=== PATIENT | female | born 1950 | race Caucasian/White ===

== ENCOUNTER 2017-05-07 11:45 | Emergency (ER) | payer OTHER ==
[~2017-05-07] VITALS: Ht 152.4 cm; Wt 122.9 kg
[~2017-05-07 11:45] MED LIST: ABAT250V; ALBU90OI61 INH; ALBUIS INH; AMLO5; AMLO5 PO; ASCO500 PO; ASPI325 PO; ASPI325EC; ASPI81EC PO; Aldactone25 MG PO; Amox Tr-K Clv1 EAC2 PO; Antivert25 MG PO; B Complex1 EAC2 PO; BELPTAB PO; CALCAVITD PO; CALCAVITDA PO; CALCIUM; CALMAGZIN; CALMAGZIN PO; CALPHO600 PO; CARV6.25 PO; CEPH500 PO; CETI10 PO; CHOL10002 PO; CIPR500 PO; CIPRO500 MG PO; CITA20 PO; CLEM1.34; CLOP75 PO; CRANBERRY250 MG PO; DIAZ2 PO; DICL25ER PO; DICL75ER PO; DILT120 PO; DIPH50 PO; DOCU100 PO; DOXY100T53 PO; DULO60 PO; ERGO400 PO; FERR325 PO; FIBER; FISH1000 PO; FLUSAL5005 INH; FLUT110OIA INH; FOLI1 PO; FURO20 PO; FURO40 PO; Flagyl500 MG PO; GABA100 PO; GLIP10 PO; GLIP5 PO; HYDACE10B PO; HYDACE5 PO; HYDCHL25 PO; HYDCOR2.5A PR; IBUP800 PO; IRON PO; IRON150C; IRON150C PO; ISOMON20 PO; ISOMON30 PO; LAVAP17G PO; LEVFLO500 PO; LISHYD2012 PO; LISHYD2025; LISHYD2025 PO; LISI20 PO; LISI5 PO; LORA10 PO; Lasix40 MG PO; MAGGLU250 PO; MAGNESIUM OTC; MAGNESIUM PO; MAGOXI400 PO; MECL25 PO; METF500 PO; METF500C PO; METO100 PO; METO100ER PO; METO50ER; METR500 PO; MOTION RELIEF25 MG PO; MOTION SICKNESS; MULVITA PO; MULVITB PO; MULVITMIND PO; MULVITMINF PO; NAPR500 PO; NEBI10 PO; NEBI5 PO; NITR.4SL SL; NITR.6SL SL; NITR100CA PO; NITROMIST4.1 GM TL; Norco 5-325 Ta1 EACH PO; OMEP40CA12 PO; ONDA8ODT MM; OXYACE5T PO; OXYC5 PO; PANT40 PO; POLY500 PO; POTA10T PO; POTA8 PO; POTASSIUM; POTCHL10ER PO; POTCHL20ER PO; PROM25 PO; PYRI100 PO; Percocet 5-3251 EACH PO; Prednisone20 MG PO; Prednisone50 MG PO; RANO500T PO; ROSU10TA PO; SIMV40 PO; STOMUL PO; SULTRIDS PO; TOCO400 PO; TRAZ100 PO; VITB100; VITNEPH PO; Ventolin Soln3 ML INH; WARF2.5 PO; WARF5 PO; ZINC; ZINC15 PO; ZOLP10 PO; ZOLP5 PO; Zofran Odt4 MG SL; Zofran4 MG PO
[2017-05-07] MEDS ORDERED: Golytely Solu4000 ML PO (14:30)
[2017-05-07] MEDS ORDERED: Kristalose20 GM PO (14:30)
[2017-05-07] MEDS ORDERED: BUME2 PO (14:51)
[2017-05-07] MEDS ORDERED: LOSA25 PO (14:52)
== END 2017-05-07 14:45 | disposition home or self-care (01) ==
LOC: ER 11:45
DX: K59.00 Constipation, unspecified (principal); I13.0 Hypertensive heart and chronic kidney disease with heart failure and stage 1 through stage 4 chronic kidney disease, or unspecified chronic kidney disease; I50.9 Heart failure, unspecified; N18.2 Chronic kidney disease, stage 2 (mild); E78.5 Hyperlipidemia, unspecified; D64.9 Anemia, unspecified; F32.9 Major depressive disorder, single episode, unspecified; Z87.891 Personal history of nicotine dependence
CPT/HCPCS: 74018; 99283

== ENCOUNTER 2017-07-11 10:07 | Emergency (ER) | payer OTHER ==
[~2017-07-11] VITALS: Ht 170.2 cm; Wt 122.5 kg
[~2017-07-11 10:07] MED LIST changes: +BUME2 PO; +Golytely Solu4000 ML PO; +Kristalose20 GM PO; +LOSA25 PO
[2017-07-11 10:52] LABS: BASOPHILS ABSOLUTE AUTO 0.02 K/mm3 (0.00-0.23); BASOPHILS PERCENT AUTO 0 % (0-2); EOSINOPHILS ABSOLUTE AUTO 0.05 K/mm3 (0.00-0.68); EOSINOPHILS PERCENT AUTO 1 % (0-6); Hematocrit 35.3 % (33.0-51.0); Hemoglobin 11.7 g/dL (11.5-16.0); IMMATURE GRAN ABSOLUTE AUTO 0.03 K/mm3 (0.00-0.10); IMMATURE GRAN PERCENT AUTO 1 % (0-1); LYMPHOCYTES ABSOLUTE AUTO 0.96 K/mm3 (0.84-5.20); LYMPHOCYTES PERCENT AUTO 16 % (21-46); MONOCYTES ABSOLUTE AUTO 0.49 K/mm3 (0.16-1.47); MONOCYTES PERCENT AUTO 8 % (4-13); Mean Corpuscular HGB 32.9 pg (26.0-34.0); Mean Corpuscular HGB Conc 33.1 g/dL (31.5-36.5); Mean Corpuscular Volume 99 fL (80-100); Mean Platelet Volume 10.4 fL (9.1-12.4); NEUTROPHILS PERCENT AUTO 74 % (41-73); Platelet Count 145 K/mm3 (150-400); RDW Coefficient Variation 14.5 % (11.7-14.2); RDW Standard Deviation 52.8 fL (35.1-46.3); Red Blood Cell Count 3.56 M/mm3 (3.80-5.20); White Blood Cell Count 6.05 K/mm3 (4.00-11.30)
[2017-07-11 11:16] LABS: Alanine Aminotransfer (ALT/SGP 26 U/L (12-78); Albumin, Blood 2.9 g/dL (3.4-5.0); Albumin/Globulin Ratio 0.7 (0.8-1.8); Alk Phos 60 U/L (50-136); Anion Gap 6 mmol/L (6-16); Aspartate Aminotrans (AST/SGOT 16 U/L (12-37); Bilirubin, Total 0.7 mg/dL (0.1-1.0); Blood Urea Nitrogen 21 mg/dL (8-24); Bun/Creatinine Ratio 19.1 (12.0-20.0); CO2, Blood 26 mmol/L (21-32); Calcium, Blood 8.8 mg/dL (8.5-10.1); Chloride, Blood 107 mmol/L (98-108); Glomerular Filtration Rate 52 (60-); Glucose, Blood 124 mg/dL (70-99); Potassium, Blood 4.2 mmol/L (3.5-5.5); Sodium, Blood 139 mmol/L (136-145); Total Protein, Blood 6.9 g/dL (6.4-8.2); Troponin I <0.015 ng/mL (0.000-0.040)
[2017-07-11] MEDS ORDERED: SPIR25 PO (12:02)
[2017-07-11] MEDS ORDERED: LOSA25 PO (12:02)
== END 2017-07-11 14:43 | disposition home or self-care (01) ==
LOC: ER 10:07
PROVIDERS: Emergency Medicine
DX: R07.9 Chest pain, unspecified (principal); Z87.891 Personal history of nicotine dependence; Z79.899 Other long term (current) drug therapy
CPT/HCPCS: 36415; 71046; 80053; 84484; 85025; 93005; 93010; 96374; 99284; J2405

== ENCOUNTER 2017-10-24 08:20 | Day surgery (SDC) | payer OTHER ==
[~2017-10-24] VITALS: Ht 152.4 cm; Wt 120.7 kg
[~2017-10-24 08:20] MED LIST changes: +SPIR25 PO
== END 2017-10-24 22:45 | disposition home or self-care (01) ==
LOC: ORSCMMR 08:20 → ORD 10:00 → ORSCMMR 10:00 → ORD 10:15 → ORSCMMR 22:45
PROVIDERS: Internal Medicine Gastroenterology
PROC: 0D758ZZ Dilation of Esophagus, Via Natural or Artificial Opening Endoscopic (ICD-10-PCS; principal; 2017-10-24 10:00)
DX: R13.10 Dysphagia, unspecified (principal); K20.9 Esophagitis, unspecified; I10 Essential (primary) hypertension; I25.2 Old myocardial infarction; J44.9 Chronic obstructive pulmonary disease, unspecified; K27.9 Peptic ulcer, site unspecified, unspecified as acute or chronic, without hemorrhage or perforation; N18.9 Chronic kidney disease, unspecified; E66.01 Morbid (severe) obesity due to excess calories; Z68.43 Body mass index [BMI] 50.0-59.9, adult
CPT/HCPCS: 82947; J2250; J7030; J7120

== ENCOUNTER 2018-08-19 11:27 | Day surgery (SDC) | payer OTHER ==
[~2018-08-19 11:27] MED LIST changes: +ALBU2.5V5 NEB; +BREO ELLIPTA 11 EACH INH; +CARV25 PO; +CRANBERRY450 M1; +LO-DOSE ASPIRIN81 MG PO; +Loratadine10 MG PO; +Nyamyc15 GM EXT; +OMEPRAZOLE20 MG PO; +Oyster Shell C500 MG PO; +Pravachol40 MG PO; +TRAZ50 PO; +VITAMIN D31000 UNIT PO
--- NOTE | 2018-08-19 12:00 | NUR ---
History, Chart, Medications and Allergies reviewed before start of procedure.Patient states colon prep results clear. Patient States Post-Procedure ride home has been arranged.
--- NOTE | 2018-08-19 14:53 | NUR ---
08/19/18 1920 Ray Hart 3-LEAD EKG REVIEWED WITH PHYSICIAN PRIOR TO START OF PROCEDURE.Patient to ENDO 1History, Chart, Medications and Allergies reviewed before start of procedure.MONITOR INTACT WITH CONTINUOUS PULSE OXIMETRY AND INTERMITTENT BP.O2 VIA N/C INTACT THROUGHOUT SEDATION/PROCEDURE. See Anesthesia record
[2018-08-19] MEDS ORDERED: RANO500T PO (15:11)
--- NOTE | 2018-08-19 15:22 | NUR ---
Patient up to Ambulate independently. Gait steady. Discharge instructions reviewed with patient. Patient verbalizes understanding. Copy given to patient to take home. Discharged via wheelchair to private car for ride home.
== END 2018-08-19 15:22 | disposition home or self-care (01) ==
LOC: ORSCMMR 11:27 → ORD 12:45 → ORSCMMR 15:22
PROVIDERS: Internal Medicine Gastroenterology
PROC: 0DBL8ZX Excision of Transverse Colon, Via Natural or Artificial Opening Endoscopic, Diagnostic (ICD-10-PCS; principal; 2018-08-19 12:45)
PROC: 0DBK8ZX Excision of Ascending Colon, Via Natural or Artificial Opening Endoscopic, Diagnostic (ICD-10-PCS; principal; 2018-08-19 12:45)
PROC: 0DBN8ZX Excision of Sigmoid Colon, Via Natural or Artificial Opening Endoscopic, Diagnostic (ICD-10-PCS; principal; 2018-08-19 12:45)
DX: Z12.11 Encounter for screening for malignant neoplasm of colon (principal); Z86.010 Personal history of colon polyps; D12.2 Benign neoplasm of ascending colon; D12.3 Benign neoplasm of transverse colon; D12.5 Benign neoplasm of sigmoid colon; K57.30 Diverticulosis of large intestine without perforation or abscess without bleeding; K64.8 Other hemorrhoids; K64.4 Residual hemorrhoidal skin tags; I10 Essential (primary) hypertension; I25.10 Atherosclerotic heart disease of native coronary artery without angina pectoris; J44.9 Chronic obstructive pulmonary disease, unspecified; E78.5 Hyperlipidemia, unspecified; J45.909 Unspecified asthma, uncomplicated; I25.2 Old myocardial infarction; G47.33 Obstructive sleep apnea (adult) (pediatric); Z79.899 Other long term (current) drug therapy; Z87.891 Personal history of nicotine dependence; E66.01 Morbid (severe) obesity due to excess calories; Z68.43 Body mass index [BMI] 50.0-59.9, adult
CPT/HCPCS: 88305; J2704; J7120

== ENCOUNTER → 2018-09-21 | Outpatient (CLI) | payer OTHER ==
[2018-09-21 16:26] LABS: BASOPHILS ABSOLUTE AUTO 0.02 K/mm3 (0.00-0.23); BASOPHILS PERCENT AUTO 0 % (0-2); EOSINOPHILS ABSOLUTE AUTO 0.07 K/mm3 (0.00-0.68); EOSINOPHILS PERCENT AUTO 1 % (0-6); Hematocrit 37.5 % (33.0-51.0); Hemoglobin 12.7 g/dL (11.5-16.0); IMMATURE GRAN ABSOLUTE AUTO 0.06 K/mm3 (0.00-0.10); IMMATURE GRAN PERCENT AUTO 1 % (0-1); LYMPHOCYTES ABSOLUTE AUTO 1.06 K/mm3 (0.84-5.20); LYMPHOCYTES PERCENT AUTO 14 % (21-46); MONOCYTES ABSOLUTE AUTO 0.49 K/mm3 (0.16-1.47); MONOCYTES PERCENT AUTO 6 % (4-13); Mean Corpuscular HGB 33.2 pg (26.0-34.0); Mean Corpuscular HGB Conc 33.9 g/dL (31.5-36.5); Mean Corpuscular Volume 98 fL (80-100); Mean Platelet Volume 10.3 fL (9.1-12.4); NEUTROPHILS ABSOLUTE AUTO 6.15 K/mm3 (1.96-9.15); NEUTROPHILS PERCENT AUTO 78 % (41-73); Platelet Count 162 K/mm3 (150-400); RDW Coefficient Variation 14.7 % (11.7-14.2); RDW Standard Deviation 52.9 fL (35.1-46.3); Red Blood Cell Count 3.82 M/mm3 (3.80-5.20); White Blood Cell Count 7.85 K/mm3 (4.00-11.30)
[2018-09-21 16:34] LABS: Bun/Creatinine Ratio 14.1 (12.0-20.0); Calcium, Blood 8.7 mg/dL (8.5-10.1); Creatinine, Blood 1.35 mg/dL (0.40-1.00); Potassium, Blood 3.6 mmol/L (3.5-5.5)
== END | disposition home or self-care (01) ==
LOC: LAB SHORT 16:20 → LAB EV 16:20
PROVIDERS: Family Medicine
DX: R53.81 Other malaise (principal); R53.83 Other fatigue
CPT/HCPCS: 80048; 85025

== ENCOUNTER 2018-10-26 14:41 | Emergency (ER) | payer OTHER ==
[~2018-10-26] VITALS: Ht 152.4 cm; Wt 120.7 kg
[2018-10-26 15:44] LABS: BASOPHILS ABSOLUTE AUTO 0.02 K/mm3 (0.00-0.23); BASOPHILS PERCENT AUTO 0 % (0-2); EOSINOPHILS ABSOLUTE AUTO 0.07 K/mm3 (0.00-0.68); EOSINOPHILS PERCENT AUTO 1 % (0-6); Hemoglobin 12.8 g/dL (11.5-16.0); IMMATURE GRAN ABSOLUTE AUTO 0.04 K/mm3 (0.00-0.10); IMMATURE GRAN PERCENT AUTO 1 % (0-1); LYMPHOCYTES ABSOLUTE AUTO 1.25 K/mm3 (0.84-5.20); LYMPHOCYTES PERCENT AUTO 19 % (21-46); MONOCYTES PERCENT AUTO 8 % (4-13); Mean Corpuscular HGB 34.2 pg (26.0-34.0); Mean Corpuscular HGB Conc 33.7 g/dL (31.5-36.5); Mean Corpuscular Volume 102 fL (80-100); Mean Platelet Volume 10.2 fL (9.1-12.4); NEUTROPHILS ABSOLUTE AUTO 4.55 K/mm3 (1.96-9.15); NEUTROPHILS PERCENT AUTO 71 % (41-73); Platelet Count 155 K/mm3 (150-400); RDW Coefficient Variation 14.5 % (11.7-14.2); Red Blood Cell Count 3.74 M/mm3 (3.80-5.20); White Blood Cell Count 6.43 K/mm3 (4.00-11.30)
[2018-10-26 16:04] LABS: Alanine Aminotransfer (ALT/SGP 19 U/L (12-78); Albumin/Globulin Ratio 0.7 (0.8-1.8); Alk Phos 82 U/L (50-136); Anion Gap 7 mmol/L (6-16); Aspartate Aminotrans (AST/SGOT 15 U/L (12-37); Bilirubin, Total 0.9 mg/dL (0.1-1.0); Blood Urea Nitrogen 9 mg/dL (8-24); Bun/Creatinine Ratio 9.7 (12.0-20.0); CO2, Blood 31 mmol/L (21-32); Chloride, Blood 105 mmol/L (98-108); Creatinine, Blood 0.93 mg/dL (0.40-1.00); Globulin, Blood 4.3 g/dL (2.2-4.0); Glomerular Filtration Rate >60 (60-); Glucose, Blood 105 mg/dL (70-99); Magnesium, Blood 1.5 mg/dL (1.6-2.4); Potassium, Blood 3.3 mmol/L (3.5-5.5); Sodium, Blood 143 mmol/L (136-145); Total Protein, Blood 7.3 g/dL (6.4-8.2)
== END 2018-10-26 17:00 | disposition home or self-care (01) ==
LOC: ER 14:41
PROVIDERS: Physician Assistant
DX: K52.9 Noninfective gastroenteritis and colitis, unspecified (principal); I10 Essential (primary) hypertension; Z86.718 Personal history of other venous thrombosis and embolism; Z87.891 Personal history of nicotine dependence; Z79.899 Other long term (current) drug therapy; Z79.891 Long term (current) use of opiate analgesic; Z79.82 Long term (current) use of aspirin
CPT/HCPCS: 36415; 80053; 83690; 83735; 85025; 93005; 93010; 99284-25

== ENCOUNTER → 2019-05-31 | Outpatient (CLI) | payer OTHER ==
[2019-05-31 12:55] LABS: Protein, Urine Random 9.5 mg/dL (0.0-11.9)
[2019-05-31 13:10] LABS: Creatinine, Urine Random 91.6 mg/dL (27.00-270.00)
== END | disposition home or self-care (01) ==
LOC: LAB SHORT 12:05 → OLS 12:05 → LAB FUT 02-26 15:50
PROVIDERS: Internal Medicine
DX: N18.3 Chronic kidney disease, stage 3 (moderate) (principal)
CPT/HCPCS: 82570; 84156

== ENCOUNTER 2021-09-11 10:03 | Emergency (ER) | payer OTHER ==
[~2021-09-11] VITALS: Ht 152.4 cm; Wt 118.8 kg
[~2021-09-11 10:03] MED LIST changes: +CALCIUM 600 MG1 EA19 PO; +Isosorbide Mono60 MG PO; -Oyster Shell C500 MG PO
[2021-09-11 10:50] LABS: BASOPHILS ABSOLUTE AUTO 0.05 K/mm3 (0.00-0.23); BASOPHILS PERCENT AUTO 1 % (0-2); EOSINOPHILS ABSOLUTE AUTO 0.21 K/mm3 (0.00-0.68); EOSINOPHILS PERCENT AUTO 3 % (0-6); Hematocrit 35.5 % (33.0-51.0); IMMATURE GRAN ABSOLUTE AUTO 0.03 K/mm3 (0.00-0.10); IMMATURE GRAN PERCENT AUTO 0 % (0-1); LYMPHOCYTES ABSOLUTE AUTO 1.86 K/mm3 (0.84-5.20); LYMPHOCYTES PERCENT AUTO 23 % (21-46); MONOCYTES ABSOLUTE AUTO 0.54 K/mm3 (0.16-1.47); MONOCYTES PERCENT AUTO 7 % (4-13); Mean Corpuscular HGB Conc 33.8 g/dL (31.5-36.5); Mean Corpuscular Volume 95 fL (80-100); NEUTROPHILS ABSOLUTE AUTO 5.34 K/mm3 (1.96-9.15); NEUTROPHILS PERCENT AUTO 67 % (41-73); Platelet Count 162 K/mm3 (150-400); RDW Coefficient Variation 14.8 % (11.7-14.2); RDW Standard Deviation 51.6 fL (35.1-46.3); Red Blood Cell Count 3.75 M/mm3 (3.80-5.20); White Blood Cell Count 8.03 K/mm3 (4.00-11.30)
[2021-09-11 11:14] LABS: Albumin, Blood 2.9 g/dL (3.4-5.0); Albumin/Globulin Ratio 0.7 (0.8-1.8); Bilirubin, Total 1.2 mg/dL (0.1-1.0); Bun/Creatinine Ratio 10.9 (12.0-20.0); Creatinine, Blood 1.01 mg/dL (0.40-1.00); Globulin, Blood 4.3 g/dL (2.2-4.0); Potassium, Blood 3.7 mmol/L (3.5-5.5); Total Protein, Blood 7.2 g/dL (6.4-8.2)
[2021-09-11 12:43] LABS: Source, Urine Clean Catch
[2021-09-11 12:56] LABS: Bilirubin, Urine Neg (Neg); Blood, Urine Neg (Neg); Color, Urine Yellow (P-Yellow); Glucose Qualitative, Urine Neg (Neg); Ketones, Urine Neg (Neg); Leukocyte Esterase, Urine Neg (Neg); Nitrite, Urine Pos (Neg); Protein, Urine Neg (Neg); Specific Gravity, Urine 1.015 (1.003-1.022); Urobilinogen, Urine NORM (Normal)
[2021-09-11 14:12] LABS: Appearance, Urine Hazy (Clear); Red Blood Cells, Urine 0-2 /hpf (0-2); White Blood Cells, Urine 0-2 /hpf (0-5)
[2021-09-11 14:13] LABS: Bacteria Many /hpf; Hyaline Casts 0-2 /lpf (0-2); Mucus Light (0-Heavy); Squamous Epithelial Cells Mod /hpf (Few)
[2021-09-11] MEDS ORDERED: CEPH500 PO (15:00)
[2021-10-03] MEDS ORDERED: HYDR1TAB94 PO (16:11)
[2021-10-03] MEDS ORDERED: Colace100 MG PO (16:11)
== END 2021-09-11 15:11 | disposition home or self-care (01) ==
LOC: ER 10:03
PROVIDERS: Physician Assistant
DX: M54.9 Dorsalgia, unspecified (principal); R19.7 Diarrhea, unspecified; I50.9 Heart failure, unspecified; N39.0 Urinary tract infection, site not specified; I11.0 Hypertensive heart disease with heart failure; Z87.891 Personal history of nicotine dependence; Z79.899 Other long term (current) drug therapy; Z79.82 Long term (current) use of aspirin; Z95.5 Presence of coronary angioplasty implant and graft
CPT/HCPCS: 36415; 71045; 80053; 81001; 84484; 85025; 87077; 87086; 87186; 93005; 93010; 99284-25; A9270

== ENCOUNTER 2021-10-21 07:58 | Inpatient (IN) | payer OTHER ==
[~2021-10-21] VITALS: Ht 152.4 cm; Wt 120.4 kg
[~2021-10-21 07:58] MED LIST changes: +Colace100 MG PO; +HYDR1TAB94 PO
[2021-10-21] MEDS ORDERED: MELO7.5 PO (08:23)
[2021-10-21] MEDS ORDERED: FAMO20 PO (08:23)
[2021-10-21] MEDS ORDERED: LOSA50 PO (08:24)
[2021-10-21] MEDS ORDERED: FURO20 PO (08:25)
[2021-10-21] MEDS ORDERED: BREO ELLIPTA 21 EAC1 INH (08:26)
[2021-10-21] MEDS ORDERED: Acerola C500 MG PO (08:26)
[2021-10-21 08:45] LABS: BASOPHILS ABSOLUTE AUTO 0.03 K/mm3 (0.00-0.23); BASOPHILS PERCENT AUTO 1 % (0-2); EOSINOPHILS ABSOLUTE AUTO 0.26 K/mm3 (0.00-0.68); EOSINOPHILS PERCENT AUTO 4 % (0-6); Hematocrit 33.9 % (33.0-51.0); IMMATURE GRAN ABSOLUTE AUTO 0.02 K/mm3 (0.00-0.10); IMMATURE GRAN PERCENT AUTO 0 % (0-1); LYMPHOCYTES ABSOLUTE AUTO 0.89 K/mm3 (0.84-5.20); LYMPHOCYTES PERCENT AUTO 14 % (21-46); MONOCYTES ABSOLUTE AUTO 0.52 K/mm3 (0.16-1.47); MONOCYTES PERCENT AUTO 8 % (4-13); Mean Corpuscular HGB 32.2 pg (26.0-34.0); Mean Corpuscular HGB Conc 32.4 g/dL (31.5-36.5); Mean Corpuscular Volume 99 fL (80-100); Mean Platelet Volume 10.6 fL (9.1-12.4); NEUTROPHILS ABSOLUTE AUTO 4.87 K/mm3 (1.96-9.15); NEUTROPHILS PERCENT AUTO 74 % (41-73); Platelet Count 165 K/mm3 (150-400); RDW Coefficient Variation 15.6 % (11.7-14.2); RDW Standard Deviation 56.5 fL (35.1-46.3); Red Blood Cell Count 3.42 M/mm3 (3.80-5.20); White Blood Cell Count 6.59 K/mm3 (4.00-11.30)
[2021-10-21 09:17] LABS: Albumin/Globulin Ratio 0.6 (0.8-1.8); Bilirubin, Total 1.3 mg/dL (0.1-1.0); Bun/Creatinine Ratio 21.1 (12.0-20.0); Calcium, Blood 9.1 mg/dL (8.5-10.1); Creatinine, Blood 0.9 mg/dL (0.40-1.00); Globulin, Blood 4.9 g/dL (2.2-4.0); Potassium, Blood 4.2 mmol/L (3.5-5.5); Total Protein, Blood 7.9 g/dL (6.4-8.2)
[2021-10-21] MEDS ORDERED: PRAV20 PO (15:08)
[2021-10-21] MEDS ORDERED: DOCU100 PO (15:09)
[2021-10-21] MEDS ORDERED: CRANBERRY500 M1 PO (15:10)
--- NOTE | 2021-10-21 15:12 | NUR ---
PT ADMITTED TO ROOM 313 AT 1430. PT A/O X 4, ONE ASSIST ON ADMIT. PT GAVE MEDICATION LIST AND MEDS RECONCILED TO LIST. PT REPORTS SHE USES OXYGEN NEEDED AT HOME AND DENIES SOB AT THIS TIME. PT HAS REDNESS AND PITTING EDEMA TO BLE. PHOTOS TAKEN OF BLE AND REDNESS OUTLINED WITH SKIN PEN. PT REPORTS LOWER BACK PAIN WITH TX TO BED, TOLERABLE AT THIS TIME. PT IS INCONTINENT OF URINE AT THIS TIME AND UNABLE TO TX QUICK ENOUGH TO BSC. ATTENDS WERE SATURATED WITH PALE YELLOW URINE, NO FOUL ODOR. PT REQUESTED PURWICK TO BE PLACED. PT DID COME UP FROM ER WITH PURWICK IN PLACE. SUCTION SET UP AND NEW PURWICK PLACED.PT PLEASANT AND COOPERATIVE WITH CARE AT THIS TIME.
[2021-10-21 17:46] LABS: International Normalized Ratio 1.02; Prothrombin Time Results 10.7 Sec (9.7-11.5)
--- NOTE | 2021-10-21 20:30 | NUR ---
PT IN BED. PUREWICK IN PLACE PATENT AND DRAINING. ASSISTED PT WITH THE USE OF THE OVERHEAD MONITOR SO SHE COULD WATCH TV. A/O. ON RA AT THIS TIME. BLE ELEVATED ON PILLOW. BOTH LEGS RED, WARM, REDNESS OUTLINED WITH MARKER. PT STATES SWELLING IN LEGS HAS REALLY GONE DOWN, MY FEET LOOK SO MUCH BETTER. NO COMPLAINTS OF CP. ON HEP GTT. WILL CONTINUE TO PROVIDE CARE T/O SHIFT. CALL LT IN REACH.
--- NOTE | 2021-10-21 22:08 | NUR ---
DR AWARE OF CRITICAL TROPONIN 694. DR CALLED LAB FOR THE CRITICAL LEVEL. NO NEW ORDERS PLACED.
--- NOTE | 2021-10-21 22:36 | NUR ---
PT PLACED IN CPAP WITH 2L BLEED IN ON CONT BIOX AT 95%. CALL LT IN REACH.
--- NOTE | 2021-10-22 00:10 | NUR ---
PT RESTING QUIETLY. CALL LT IN REACH.
[2021-10-22 00:17] LABS: BASOPHILS ABSOLUTE AUTO 0.04 K/mm3 (0.00-0.23); BASOPHILS PERCENT AUTO 1 % (0-2); EOSINOPHILS ABSOLUTE AUTO 0.25 K/mm3 (0.00-0.68); EOSINOPHILS PERCENT AUTO 4 % (0-6); Hematocrit 31.2 % (33.0-51.0); Hemoglobin 10.4 g/dL (11.5-16.0); IMMATURE GRAN ABSOLUTE AUTO 0.01 K/mm3 (0.00-0.10); IMMATURE GRAN PERCENT AUTO 0 % (0-1); LYMPHOCYTES ABSOLUTE AUTO 1.12 K/mm3 (0.84-5.20); LYMPHOCYTES PERCENT AUTO 16 % (21-46); MONOCYTES ABSOLUTE AUTO 0.53 K/mm3 (0.16-1.47); MONOCYTES PERCENT AUTO 7 % (4-13); Mean Corpuscular HGB 32.3 pg (26.0-34.0); Mean Corpuscular HGB Conc 33.3 g/dL (31.5-36.5); Mean Corpuscular Volume 97 fL (80-100); Mean Platelet Volume 10.6 fL (9.1-12.4); NEUTROPHILS ABSOLUTE AUTO 5.22 K/mm3 (1.96-9.15); NEUTROPHILS PERCENT AUTO 73 % (41-73); Platelet Count 172 K/mm3 (150-400); RDW Coefficient Variation 15.4 % (11.7-14.2); RDW Standard Deviation 55.1 fL (35.1-46.3); Red Blood Cell Count 3.22 M/mm3 (3.80-5.20); White Blood Cell Count 7.17 K/mm3 (4.00-11.30)
[2021-10-22 00:35] LABS: Albumin, Blood 2.8 g/dL (3.4-5.0); Albumin/Globulin Ratio 0.6 (0.8-1.8); Bilirubin, Total 1.3 mg/dL (0.1-1.0); Bun/Creatinine Ratio 18.3 (12.0-20.0); Calcium, Blood 8.9 mg/dL (8.5-10.1); Creatinine, Blood 1.15 mg/dL (0.40-1.00); Globulin, Blood 4.6 g/dL (2.2-4.0); Total Protein, Blood 7.4 g/dL (6.4-8.2)
--- NOTE | 2021-10-22 01:25 | NUR ---
PT RESTING WELL. PUREWICK IN PLACE. CONT BIOX 91%. CPAP IN PLACE. HEP GTT INFUSING. WILL CONTINUE TO PROVIDE CARE.
--- NOTE | 2021-10-22 02:57 | NUR ---
RATE CHANGE IN HEPARIN IVPB DOSING COMPLETED WITH SECOND RN. PT SWITCHED OUT TO NC 2L. WAS TIRED OF WEARING CPAP. NO OTHER NEEDS. CALL LT IN REACH.
--- NOTE | 2021-10-22 04:34 | NUR ---
SHIFT SUMMARY: A/O. PLEASANT AND COOPERATIVE WITH CARE. ON 2L VIA NC NEEDED. SINUS AT 62 ON TELE WITH PVC'S. HEP GTT INFUSING. RATE CHANGE DURING SHIFT. TROP IS STARTING TO TREND DOWN, LAST TROP 694. NO COMPLAINTS OF CHEST PAIN, SOB, OR NAUSEA. PT WORE CPAP MOST OF THE SHIFT. CURRENTLY ON 2L VIA NC WITH SATS OF 94%. BLE SWELLING IMPROVING PER PT. STATES THE SWELLING HAS GONE DOWN QUITE A BIT. WILL CONTINUE TO PROVIDE CARE UNTIL SHIFT REPORT.
--- NOTE | 2021-10-22 18:39 | NUR ---
SHIFT SUMMARY: PT ALERT AND OREIENTATED. PT SBA TO THE BEDSIDE CAMMODE. PT VITALS STABLE, PT REQUESTED FOR PAIN MEDICATION FOR NECK PAIN. ON REASSESSMENT PT STATED NO PAIN. PT STATED CONSTIPATION, DR. GORDON ORDER DOCUSATE 100MG BID. PT RESTING IN BED WITH CALL LIGHT WITHIN REACH.
[2021-10-23 02:17] LABS: BASOPHILS ABSOLUTE AUTO 0.04 K/mm3 (0.00-0.23); BASOPHILS PERCENT AUTO 1 % (0-2); EOSINOPHILS ABSOLUTE AUTO 0.29 K/mm3 (0.00-0.68); EOSINOPHILS PERCENT AUTO 4 % (0-6); Hematocrit 30.5 % (33.0-51.0); Hemoglobin 10.1 g/dL (11.5-16.0); IMMATURE GRAN ABSOLUTE AUTO 0.02 K/mm3 (0.00-0.10); IMMATURE GRAN PERCENT AUTO 0 % (0-1); LYMPHOCYTES ABSOLUTE AUTO 1.07 K/mm3 (0.84-5.20); LYMPHOCYTES PERCENT AUTO 15 % (21-46); MONOCYTES ABSOLUTE AUTO 0.55 K/mm3 (0.16-1.47); MONOCYTES PERCENT AUTO 8 % (4-13); Mean Corpuscular HGB 32.2 pg (26.0-34.0); Mean Corpuscular HGB Conc 33.1 g/dL (31.5-36.5); Mean Corpuscular Volume 97 fL (80-100); Mean Platelet Volume 10.5 fL (9.1-12.4); NEUTROPHILS PERCENT AUTO 72 % (41-73); Platelet Count 157 K/mm3 (150-400); RDW Coefficient Variation 15.6 % (11.7-14.2); RDW Standard Deviation 54.7 fL (35.1-46.3); Red Blood Cell Count 3.14 M/mm3 (3.80-5.20); White Blood Cell Count 7.07 K/mm3 (4.00-11.30)
[2021-10-23 02:35] LABS: Albumin, Blood 2.7 g/dL (3.4-5.0); Anion Gap 5 mmol/L (6-16); Blood Urea Nitrogen 28 mg/dL (8-24); Bun/Creatinine Ratio 23.5 (12.0-20.0); CO2, Blood 34 mmol/L (21-32); Calcium, Blood 8.7 mg/dL (8.5-10.1); Chloride, Blood 99 mmol/L (98-108); Creatinine, Blood 1.19 mg/dL (0.40-1.00); Glomerular Filtration Rate 49 (60-); Glucose, Blood 116 mg/dL (70-99); Phosphorus, Blood 4.6 mg/dL (2.5-4.9); Potassium, Blood 3.8 mmol/L (3.5-5.5); Sodium, Blood 138 mmol/L (136-145)
--- NOTE | 2021-10-23 06:09 | NUR ---
SHIFT SUMMARY: PT IS ALERT AND ORIENTED. PT IS CALM AND COOPERATIVE WITH CARE. PT CALLS APPROPRIATELY. PT IS A STANDBY ASSIST TO THE BSC. PT DENIES PAIN, NAUSEA, VOMITING, AND SOB. PT SLEPT MUCH OF THE NIGHT WHEN NOT DISTURBED. NO ACUTE CHANGES OR COMPLICATIONS THIS SHIFT. WILL CONTINUE TO MONITOR AND REPORT TO DAY NURSE.
--- NOTE | 2021-10-23 07:34 | NUR ---
ASSUMED CARE: PT RESTING IN BED AT THIS TIME, CPAP IN PLACE. SINUS CHANG ON TELE AT 58. NO ACUTE NEEDS OR CONCERNS AT THIS TIME.
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
--- NOTE | 2021-10-23 15:36 | NUR ---
discharge: pt escorted out via wheel chair by hospital staff. legs wrapped with vaseline guaze and kerlix. iv's dc'd wnl. no acute needs or concern.
== END 2021-10-23 15:30 | disposition home or self-care (01) | DRG 280 ==
LOC: ER 07:58 → MEDS 07:59
PROVIDERS: Emergency Medicine; Family Medicine; ADMIT Hospitalist
DX: I11.0 Hypertensive heart disease with heart failure (principal); I50.33 Acute on chronic diastolic (congestive) heart failure; I21.A1 Myocardial infarction type 2; Z66 Do not resuscitate; G47.33 Obstructive sleep apnea (adult) (pediatric); M19.90 Unspecified osteoarthritis, unspecified site; J44.9 Chronic obstructive pulmonary disease, unspecified; K21.9 Gastro-esophageal reflux disease without esophagitis; Z91.14 Patient's other noncompliance with medication regimen; I25.2 Old myocardial infarction; Z86.718 Personal history of other venous thrombosis and embolism; Z90.49 Acquired absence of other specified parts of digestive tract; Z87.19 Personal history of other diseases of the digestive system; Z95.5 Presence of coronary angioplasty implant and graft; Z98.49 Cataract extraction status, unspecified eye; Z87.891 Personal history of nicotine dependence; Z79.82 Long term (current) use of aspirin; Z79.899 Other long term (current) drug therapy
CPT/HCPCS: 36415; 71046; 80053; 80069; 83880; 84484; 85025; 85610; 85730; 93005; 93010; 94640; 94660; 94664; 94762; 96372; 96372-59; 96374; 96375; 96376; 99285-25; A9270; C8929; G0378; J1644; J1650; J1940; J2405; J3010; Q9957

== ENCOUNTER 2021-11-19 01:05 | Day surgery (SDC) | payer OTHER ==
[~2021-11-19 01:05] MED LIST changes: +Acerola C500 MG PO; +BREO ELLIPTA 21 EAC1 INH; +CRANBERRY500 M1 PO; +FAMO20 PO; +LOSA50 PO; +MELO7.5 PO; +PRAV20 PO
== END 2021-11-19 22:53 | disposition home or self-care (01) ==
LOC: WOUND 01:05
DX: L97.812 Non-pressure chronic ulcer of other part of right lower leg with fat layer exposed (principal); L03.115 Cellulitis of right lower limb; L97.822 Non-pressure chronic ulcer of other part of left lower leg with fat layer exposed; L03.116 Cellulitis of left lower limb; I87.313 Chronic venous hypertension (idiopathic) with ulcer of bilateral lower extremity; I87.2 Venous insufficiency (chronic) (peripheral)
CPT/HCPCS: G0463

== ENCOUNTER 2021-12-03 01:43 | Day surgery (SDC) | payer OTHER | END 2021-12-03 22:53 | disposition home or self-care (01) | LOC: WOUND 01:43 | DX: I87.313 Chronic venous hypertension (idiopathic) with ulcer of bilateral lower extremity (principal); L97.822 Non-pressure chronic ulcer of other part of left lower leg with fat layer exposed; L97.812 Non-pressure chronic ulcer of other part of right lower leg with fat layer exposed; L03.116 Cellulitis of left lower limb; L03.115 Cellulitis of right lower limb; R60.0 Localized edema; I87.2 Venous insufficiency (chronic) (peripheral); I25.2 Old myocardial infarction; I50.9 Heart failure, unspecified | CPT/HCPCS: A9270; G0463 ==

== ENCOUNTER 2021-12-10 01:56 | Day surgery (SDC) | payer OTHER | END 2021-12-10 23:22 | disposition home or self-care (01) | LOC: WOUND 01:56 | DX: I87.303 Chronic venous hypertension (idiopathic) without complications of bilateral lower extremity (principal); R60.0 Localized edema; I87.2 Venous insufficiency (chronic) (peripheral); I25.2 Old myocardial infarction; I50.9 Heart failure, unspecified; Z87.2 Personal history of diseases of the skin and subcutaneous tissue | CPT/HCPCS: G0463 ==

== ENCOUNTER 2022-01-11 08:55 | Inpatient (IN) | payer OTHER ==
[~2022-01-11] VITALS: Ht 152.4 cm; Wt 117.5 kg
[~2022-01-11 08:55] MED LIST changes: +ALBU2.5V5 INH; +ALBU90OI INH; +Vitamin D1000 UNI1 PO
[2022-01-11 09:48] LABS: Hematocrit 34.5 % (33.0-51.0); Hemoglobin 11.9 g/dL (11.5-16.0); Mean Corpuscular HGB Conc 34.5 g/dL (31.5-36.5); Mean Corpuscular Volume 96 fL (80-100); Mean Platelet Volume 10.8 fL (9.1-12.4); Platelet Count 152 K/mm3 (150-400); RDW Coefficient Variation 14.4 % (11.7-14.2); RDW Standard Deviation 50.4 fL (35.1-46.3); Red Blood Cell Count 3.61 M/mm3 (3.80-5.20); White Blood Cell Count 6.24 K/mm3 (4.00-11.30)
[2022-01-11 10:00] LABS: International Normalized Ratio 1.04; Prothrombin Time Results 10.9 Sec (9.7-11.5)
[2022-01-11 10:01] LABS: Bun/Creatinine Ratio 20.2 (12.0-20.0); Calcium, Blood 9.3 mg/dL (8.5-10.1); Creatinine, Blood 1.19 mg/dL (0.40-1.00); Potassium, Blood 3.5 mmol/L (3.5-5.5)
--- NOTE | 2022-01-11 11:40 | NUR ---
pt report from jossie wells. pt a&ox4. pt sitting up in bed. tr band in place with 12cc of air in band. sister at bedside.
--- NOTE | 2022-01-11 13:25 | NUR ---
PT ATE LUNCH AND GIVEN ICE WATER. PT ATTENDS CHANGED. PT TO BE TAKEN TO PCU
--- NOTE | 2022-01-11 13:45 | NUR ---
2 CC REMOVED FROM TR BAND. NO BLEEDING NOTED. SITE SOFT AND NON-TENDER. PT TRANSPORTED TO PCU. REPORT GIVEN TO RICKY OLIVAS.
[2022-01-11] MEDS ORDERED: NYSTATIN15 GM TOP (15:32)
--- NOTE | 2022-01-11 18:44 | NUR ---
PT ARRIVED FROM [facility] THIS AFTER NOON POST ANGIO, NO INTERVENTIONS WERE PERFORMED, PT WILL BE TRANSFERED FOR CABG. RT RADIAL SITE IS FULLY RECOVERED, NO HEMATOMA, NO ACTIVE BLEEDING NOTED. VSS. DENIES CP OR SOB. 1 PERSON STAND BY TO BATHROOM. A/O X4. NEW ORDERS FOR HEPARIN PLACED
--- NOTE | 2022-01-12 05:29 | NUR ---
SHIFT SUMMARY PT ALERT AND ORIENTED X4. AFEBRILE. HR SB/SR 50-60'S. BP STABLE. ON RA SATS OVER 95%. ON CPAP AT NIGHT W/ 2-3L BLEED IN. R RADIAL SITE C/D/I. PT REPORTS NO CP. HEP GTT INFUSING IN R A/C. ASLEEP MOST OF NIGHT. IN BED WITH CALL ALARM AT SIDE, WILL CONTINUE TO MONITOR UNTIL REPORT GIVEN TO ONCOMING RN
--- NOTE | 2022-01-12 18:30 | NUR ---
PT A/O X4, VSS. DENIES CP OR SOB T/O THE DAY. VSS. PT SBA TO BATHROOM. AWAITING COBRA TRANSFER TO [facility] FOR CABG. HEPARIN CONTINUES TO INFUSE AT 13/HR. NADN. USES CALL LIGHT APPROPRIATELY. REMAINS ON RA T/O THE DAY. ANTI-FUNGAL APPLIED TO ABD SKIN FOLDS THAT ARE REDDENED.
--- NOTE | 2022-01-13 05:43 | NUR ---
SHIFT SUMMARY ASSUMED CARE OF PT AT 1900. P[T IS A/OX4. HEART SOUNDS CHANG. LUNG SOUNDS DIMINISHED AT BASES. PT WORE CPAP T/O THE NIGHT. PT IS A 1P ASSIT TO BATHROOM. PT HAD NO NEW COMPLAINTS TODAY. HEPRIN GTT INFUSING ALL NIGHT.
--- NOTE | 2022-01-13 17:33 | NUR ---
SHIFT SUMMARY; ASSUMED CARE AT 0700. A/A/OX4, SBA IN ROOM. MOVES SELF ON GURNEY NEEDED. RIGHT RADIAL SITE WITH TEGADERM INTACT, DRY, NO SWELLING OR BRUISING. DENIES CP OR SOB DURING SHIFT, VSS, 2L 02 VIA SD PRN, STATES THIS IS BASELINE FOR HER. NO ACUTE MEDICAL CHANGES DURING SHIFT. PENDING POSSIBLE COBRA TRANSFER, WILL CONTINUE TO LOOK FOR BEDS. WILL CONTINUE TO MONITOR AND TREAT UNTIL CHANGE OF SHIFT.
--- NOTE | 2022-01-13 17:35 | NUR ---
SHIFT SUMMARY; ASSUMED CARE AT 0700. A/A/OX2-3. INTERMITANTLY CONFUSED AT TIMES. BEDBOUND AT BASELINE, LEGS CONTRACTED. Q2 TURNS DURING SHIFT WITH ATTENDS CHANGES. MEPILEX TO LEFT HIP AREA. LARGE RAW SORE NOTED. MOANS IN PAIN WHEN REPOSITIONED, STATES HURTS ALL OVER. FENTANYL PATCH CHANGED TODAY PER EMAR, IV FENTANYL PRN FOR BREAKTHROUGH PAIN. SPOUSE AT BEDSIDE IN AM. VSS, 8L 02 VIA OXYMIZER. WILL CONTINUE TO MONITOR AND TREAT UNTIL CHANGE OF SHIFT.
--- NOTE | 2022-01-14 06:17 | NUR ---
Patient A/Ox4, cooperative with care. Anxious to get her procedure done. SR-SB on tele with BBB and PAC's. Maintains over 95% on 3L NC or CPAP with 3L bleed in. Heparin gtt still going per emar. No acute events. Will report to dayshift RICKY.
[2022-01-14 16:54] LABS: SARS-Cov-2 (COVID-19) PCR, MMC NEGATIVE (NEGATIVE)
--- NOTE | 2022-01-14 17:43 | NUR ---
END OF SHIFT: NEURO: COMLETELY ALERT AND ORIENTED, PLEASANT COOPERATIVE WITH CARE, ABLE TO MAKE NEEDS KNOWN. CARDIAC: SB TO SR, 0 CP, PRESSURE OR SOB. NORMOTENSIVE, SOME MINOR EXERTION DYSPNEA. RESOLVES WITH REST, VERY MINOR. STILL INFUSING HEPARIN AT 13 THERAPUETIC ANTI X DAILY. GENERALIZED EDEMA WITH 2+ NONPITTING EDEMA ON BLE. PULM: SPO2>96% ON RA, 1-3L VIA NC WITH EXERTION, NO COUGH OR ADVENTAGIOUS LUNG SOUNDS. GI/: BM TODAY, CONTINENT OF BOWEL, VERY RARE INCONTINENCE OF URINE, DIURETICS IN PLACE, SKIN: BLE VASCULAR SOCKING NOTING, PLAN: SENDING TO [id number]. REPORT GIVEN AMBULANCE EN ROUTE. NO CONCERNS FROM PATIENT OR THIS RN AT THIS TIME.
== END 2022-01-14 18:23 | disposition short-term general hospital (02) | DRG 287 ==
LOC: PCU 08:55 → MHTC 08:55 → PCU 14:37 → MHTC 01-12 14:05 → PCU 01-12 14:06
PROVIDERS: ADMIT Internal Medicine Cardiovascular Disease
PROC: 4A023N7 Measurement of Cardiac Sampling and Pressure, Left Heart, Percutaneous Approach (ICD-10-PCS; principal; 2022-01-11)
PROC: B2111ZZ Fluoroscopy of Multiple Coronary Arteries using Low Osmolar Contrast (ICD-10-PCS; 2022-01-11)
DX: I25.118 Atherosclerotic heart disease of native coronary artery with other forms of angina pectoris (principal); I13.0 Hypertensive heart and chronic kidney disease with heart failure and stage 1 through stage 4 chronic kidney disease, or unspecified chronic kidney disease; I50.32 Chronic diastolic (congestive) heart failure; Z68.43 Body mass index [BMI] 50.0-59.9, adult; T82.855A Stenosis of coronary artery stent, initial encounter; I25.82 Chronic total occlusion of coronary artery; Z20.822 Contact with and (suspected) exposure to COVID-19; E66.9 Obesity, unspecified; N18.30 Chronic kidney disease, stage 3 unspecified; E11.22 Type 2 diabetes mellitus with diabetic chronic kidney disease; E78.00 Pure hypercholesterolemia, unspecified; J44.9 Chronic obstructive pulmonary disease, unspecified; K21.9 Gastro-esophageal reflux disease without esophagitis; G47.33 Obstructive sleep apnea (adult) (pediatric); Z95.5 Presence of coronary angioplasty implant and graft; Z79.82 Long term (current) use of aspirin; Z87.891 Personal history of nicotine dependence; Z66 Do not resuscitate
CPT/HCPCS: 36415; 76937; 80048; 85027; 85520; 85610; 93454; 94640; 94660; 94664; 94762; 99152; 99153; A9270; C1769; C1887; C1894; J1644; J2250; J3010; J7030; J7040; Q9967; U0004

== ENCOUNTER 2022-03-13 04:07 | Day surgery (SDC) | payer OTHER ==
[~2022-03-13 04:07] MED LIST changes: +NYSTATIN15 GM TOP
== END 2022-03-13 23:02 | disposition home or self-care (01) ==
LOC: WOUND 04:07
DX: T81.31XA Disruption of external operation (surgical) wound, not elsewhere classified, initial encounter (principal); S31.102A Unspecified open wound of abdominal wall, epigastric region without penetration into peritoneal cavity, initial encounter; S21.109A Unspecified open wound of unspecified front wall of thorax without penetration into thoracic cavity, initial encounter; L97.122 Non-pressure chronic ulcer of left thigh with fat layer exposed; I50.9 Heart failure, unspecified; I25.2 Old myocardial infarction; Z95.1 Presence of aortocoronary bypass graft; Z87.891 Personal history of nicotine dependence
CPT/HCPCS: A9270; G0463

== ENCOUNTER 2022-03-20 05:32 | Day surgery (SDC) | payer OTHER | END 2022-03-20 23:01 | disposition home or self-care (01) | LOC: WOUND 05:32 | DX: T81.31XA Disruption of external operation (surgical) wound, not elsewhere classified, initial encounter (principal); L97.122 Non-pressure chronic ulcer of left thigh with fat layer exposed; S21.109A Unspecified open wound of unspecified front wall of thorax without penetration into thoracic cavity, initial encounter; S31.102A Unspecified open wound of abdominal wall, epigastric region without penetration into peritoneal cavity, initial encounter | CPT/HCPCS: A9270 ==

== ENCOUNTER 2022-03-27 01:41 | Day surgery (SDC) | payer OTHER | END 2022-03-27 22:52 | disposition home or self-care (01) | LOC: WOUND 01:41 | DX: T81.32XA Disruption of internal operation (surgical) wound, not elsewhere classified, initial encounter (principal); L97.122 Non-pressure chronic ulcer of left thigh with fat layer exposed; Y83.8 Other surgical procedures as the cause of abnormal reaction of the patient, or of later complication, without mention of misadventure at the time of the procedure | CPT/HCPCS: A9270; G0463 ==

== ENCOUNTER → 2022-04-02 | Outpatient (CLI) | payer OTHER ==
[2022-04-02 11:38] LABS: Bun/Creatinine Ratio 16.7 (12.0-20.0); Creatinine, Blood 1.26 mg/dL (0.40-1.00); Potassium, Blood 3.4 mmol/L (3.5-5.5)
== END ==
LOC: EDSTATUS 10:06 → LAB UVN 10:36
PROVIDERS: Internal Medicine
DX: I10 Essential (primary) hypertension (principal); N17.9 Acute kidney failure, unspecified
CPT/HCPCS: 80048

== ENCOUNTER 2022-04-12 01:23 | Day surgery (SDC) | payer OTHER | END 2022-04-13 22:40 | disposition home or self-care (01) | LOC: WOUND 01:23 | DX: T81.31XA Disruption of external operation (surgical) wound, not elsewhere classified, initial encounter (principal); L97.122 Non-pressure chronic ulcer of left thigh with fat layer exposed; S21.109A Unspecified open wound of unspecified front wall of thorax without penetration into thoracic cavity, initial encounter; S31.102A Unspecified open wound of abdominal wall, epigastric region without penetration into peritoneal cavity, initial encounter | CPT/HCPCS: A9270; G0463 ==

== ENCOUNTER 2022-04-19 00:13 | Day surgery (SDC) | payer OTHER | END 2022-04-19 23:05 | disposition home or self-care (01) | LOC: WOUND 00:13 | DX: T81.31XA Disruption of external operation (surgical) wound, not elsewhere classified, initial encounter (principal); S21.109A Unspecified open wound of unspecified front wall of thorax without penetration into thoracic cavity, initial encounter; S31.102A Unspecified open wound of abdominal wall, epigastric region without penetration into peritoneal cavity, initial encounter; I50.9 Heart failure, unspecified; I25.2 Old myocardial infarction; Z95.1 Presence of aortocoronary bypass graft | CPT/HCPCS: A9270 ==

== ENCOUNTER 2022-04-26 01:53 | Day surgery (SDC) | payer OTHER | END 2022-04-26 23:08 | disposition home or self-care (01) | LOC: WOUND 01:53 | DX: L97.122 Non-pressure chronic ulcer of left thigh with fat layer exposed (principal); T81.31XD Disruption of external operation (surgical) wound, not elsewhere classified, subsequent encounter; S21.109D Unspecified open wound of unspecified front wall of thorax without penetration into thoracic cavity, subsequent encounter; S31.102D Unspecified open wound of abdominal wall, epigastric region without penetration into peritoneal cavity, subsequent encounter | CPT/HCPCS: G0463 ==

== ENCOUNTER 2022-05-03 00:17 | Day surgery (SDC) | payer OTHER | END 2022-05-03 22:53 | disposition home or self-care (01) | LOC: WOUND 00:17 | DX: T81.31XD Disruption of external operation (surgical) wound, not elsewhere classified, subsequent encounter (principal); S21.109D Unspecified open wound of unspecified front wall of thorax without penetration into thoracic cavity, subsequent encounter; S31.102D Unspecified open wound of abdominal wall, epigastric region without penetration into peritoneal cavity, subsequent encounter; X58.XXXD Exposure to other specified factors, subsequent encounter; L97.122 Non-pressure chronic ulcer of left thigh with fat layer exposed; I50.9 Heart failure, unspecified | CPT/HCPCS: G0463 ==

== ENCOUNTER 2022-05-17 01:52 | Day surgery (SDC) | payer OTHER | END 2022-05-17 23:04 | disposition home or self-care (01) | LOC: WOUND 01:52 | DX: L97.122 Non-pressure chronic ulcer of left thigh with fat layer exposed (principal); T81.31XD Disruption of external operation (surgical) wound, not elsewhere classified, subsequent encounter; S21.109D Unspecified open wound of unspecified front wall of thorax without penetration into thoracic cavity, subsequent encounter; S31.102D Unspecified open wound of abdominal wall, epigastric region without penetration into peritoneal cavity, subsequent encounter | CPT/HCPCS: G0463 ==

== ENCOUNTER 2022-05-24 01:48 | Day surgery (SDC) | payer OTHER | END 2022-05-24 22:47 | disposition home or self-care (01) | LOC: WOUND 01:48 | DX: T81.31XD Disruption of external operation (surgical) wound, not elsewhere classified, subsequent encounter (principal); Y83.8 Other surgical procedures as the cause of abnormal reaction of the patient, or of later complication, without mention of misadventure at the time of the procedure; S21.109D Unspecified open wound of unspecified front wall of thorax without penetration into thoracic cavity, subsequent encounter; S31.102D Unspecified open wound of abdominal wall, epigastric region without penetration into peritoneal cavity, subsequent encounter; X58.XXXD Exposure to other specified factors, subsequent encounter; L97.122 Non-pressure chronic ulcer of left thigh with fat layer exposed; I50.9 Heart failure, unspecified; I25.2 Old myocardial infarction | CPT/HCPCS: G0463 ==

== ENCOUNTER 2022-05-31 01:39 | Day surgery (SDC) | payer OTHER | END 2022-05-31 22:53 | disposition home or self-care (01) | LOC: WOUND 01:39 | DX: T81.31XD Disruption of external operation (surgical) wound, not elsewhere classified, subsequent encounter (principal); S21.109D Unspecified open wound of unspecified front wall of thorax without penetration into thoracic cavity, subsequent encounter; L97.122 Non-pressure chronic ulcer of left thigh with fat layer exposed; S31.102D Unspecified open wound of abdominal wall, epigastric region without penetration into peritoneal cavity, subsequent encounter | CPT/HCPCS: G0463 ==

== ENCOUNTER 2022-06-07 02:17 | Day surgery (SDC) | payer OTHER | END 2022-06-07 22:45 | disposition home or self-care (01) | LOC: WOUND 02:17 | DX: T81.32XA Disruption of internal operation (surgical) wound, not elsewhere classified, initial encounter (principal); S21.109D Unspecified open wound of unspecified front wall of thorax without penetration into thoracic cavity, subsequent encounter; L97.122 Non-pressure chronic ulcer of left thigh with fat layer exposed; S31.102D Unspecified open wound of abdominal wall, epigastric region without penetration into peritoneal cavity, subsequent encounter; I25.2 Old myocardial infarction; I50.9 Heart failure, unspecified | CPT/HCPCS: G0463 ==

== ENCOUNTER 2022-06-14 00:04 | Day surgery (SDC) | payer OTHER | END 2022-06-14 22:58 | disposition home or self-care (01) | LOC: WOUND 00:04 | DX: T81.31XD Disruption of external operation (surgical) wound, not elsewhere classified, subsequent encounter (principal); S21.109D Unspecified open wound of unspecified front wall of thorax without penetration into thoracic cavity, subsequent encounter; L97.122 Non-pressure chronic ulcer of left thigh with fat layer exposed; S31.102D Unspecified open wound of abdominal wall, epigastric region without penetration into peritoneal cavity, subsequent encounter | CPT/HCPCS: G0463 ==

== ENCOUNTER 2022-06-28 03:30 | Day surgery (SDC) | payer OTHER | END 2022-06-28 22:38 | disposition home or self-care (01) | LOC: WOUND 03:30 | DX: S21.109D Unspecified open wound of unspecified front wall of thorax without penetration into thoracic cavity, subsequent encounter (principal); X58.XXXD Exposure to other specified factors, subsequent encounter; T81.31XD Disruption of external operation (surgical) wound, not elsewhere classified, subsequent encounter; I25.2 Old myocardial infarction; I50.9 Heart failure, unspecified | CPT/HCPCS: G0463 ==

== ENCOUNTER 2022-07-05 01:53 | Day surgery (SDC) | payer OTHER | END 2022-07-05 22:57 | disposition home or self-care (01) | LOC: WOUND 01:53 | DX: S21.109D Unspecified open wound of unspecified front wall of thorax without penetration into thoracic cavity, subsequent encounter (principal); X58.XXXD Exposure to other specified factors, subsequent encounter; T81.31XD Disruption of external operation (surgical) wound, not elsewhere classified, subsequent encounter; Y83.8 Other surgical procedures as the cause of abnormal reaction of the patient, or of later complication, without mention of misadventure at the time of the procedure | CPT/HCPCS: G0463 ==

== ENCOUNTER 2022-07-12 00:41 | Day surgery (SDC) | payer OTHER | END 2022-07-13 22:40 | disposition home or self-care (01) | LOC: WOUND 00:41 | DX: T81.31XD Disruption of external operation (surgical) wound, not elsewhere classified, subsequent encounter (principal); S21.109D Unspecified open wound of unspecified front wall of thorax without penetration into thoracic cavity, subsequent encounter; X58.XXXD Exposure to other specified factors, subsequent encounter | CPT/HCPCS: G0463 ==

== ENCOUNTER 2022-07-19 01:03 | Day surgery (SDC) | payer OTHER | END 2022-07-21 22:38 | disposition home or self-care (01) | LOC: WOUND 01:03 | DX: S21.109D Unspecified open wound of unspecified front wall of thorax without penetration into thoracic cavity, subsequent encounter (principal); X58.XXXD Exposure to other specified factors, subsequent encounter; T81.31XD Disruption of external operation (surgical) wound, not elsewhere classified, subsequent encounter; Y83.8 Other surgical procedures as the cause of abnormal reaction of the patient, or of later complication, without mention of misadventure at the time of the procedure; I25.2 Old myocardial infarction; I50.9 Heart failure, unspecified | CPT/HCPCS: G0463 ==

== ENCOUNTER → 2023-01-11 | Outpatient (CLI) | payer OTHER ==
[~2023-01-11] MED LIST changes: +LIDO700A20 TOP; +Voltaren100 GM UD
== END ==
LOC: LAB 12:38 → LAB SHORT 12:38
DX: I25.10 Atherosclerotic heart disease of native coronary artery without angina pectoris (principal); I10 Essential (primary) hypertension
CPT/HCPCS: 84484

== ENCOUNTER 2023-08-28 16:16 | Emergency (ER) | payer OTHER ==
[~2023-08-28] VITALS: Ht 152.4 cm; Wt 105.7 kg
[2023-08-28] MEDS ORDERED: Ketorolac Tromethamine 30mg Vial IM ONE (17:50)
[2023-08-28] MEDS ORDERED: CELE100 PO (19:32)
[2023-08-28] MEDS ORDERED: TRAM50 PO ×2 (19:32→19:47)
[2023-08-28 20:15] VITALS: BP 139/59
== END 2023-08-28 20:25 | disposition home or self-care (01) ==
LOC: ER 16:16
DX: S80.02XA Contusion of left knee, initial encounter (principal); I10 Essential (primary) hypertension; G47.33 Obstructive sleep apnea (adult) (pediatric); W01.0XXA Fall on same level from slipping, tripping and stumbling without subsequent striking against object, initial encounter; Z87.891 Personal history of nicotine dependence; Z79.82 Long term (current) use of aspirin; Z79.51 Long term (current) use of inhaled steroids; Z79.899 Other long term (current) drug therapy
CPT/HCPCS: 73502; 73562-LT; 73630; 96372; 99283-25; J1885

== ENCOUNTER 2024-01-05 08:30 | Day surgery (SDC) | payer OTHER ==
[~2024-01-05] VITALS: Ht 152.4 cm; Wt 105.6 kg
[~2024-01-05 08:30] MED LIST changes: +ANORO ELLIPTA1 EACH INH; +CELE100 PO; +Lactated Ringer's 1,000 ML IV SCH; +MONT10T PO; +NS 500 ML IV SCH; +TRAM50 PO
[2024-01-05] MEDS ORDERED: Ipratropium/Albuterol SulF 2.5-0.5MG/3 ML Amp INH ONE (11:20)
[2024-01-05] MEDS ORDERED: Ipratropium/Albuterol SulF 2.5-0.5MG/3 ML Amp ONE (11:21)
[2024-01-05] MEDS ORDERED: propofoL 40 ML IV ONE (11:21)
--- NOTE | 2024-01-05 11:39 | NUR ---
01/05/24 1139 Ángel Singer History, Chart, Medications and Allergies reviewed before start of procedure. DUONEB BREATHING TREATMENT GIVEN BEFORE BRINGING PT INTO PROCEDURE ROOM PER DR MCKNIGHT'S ORDERS.
[2024-01-05 12:12] VITALS: BP 111/57
[2024-01-05 12:15] VITALS: BP 111/57
[2024-01-05 12:27] VITALS: BP 142/58
[2024-01-05 12:30] VITALS: BP 142/58
--- NOTE | 2024-01-05 12:39 | NUR ---
PT ABLE TO MAKE NEEDS KNOWN. PT ADÁN PO, DENIES PAIN OR NAUSEA. BELONGINGS RETURNED TO PT. DISCHARGE INSTRUCTIONS, WILL USE W/C FOR TRANSFER TO CAR. RIDE HOME.
[2024-01-05 12:42] VITALS: BP 110/85
[2024-01-05] MEDS ORDERED: Glycopyrrolate 0.2 MG/ML 5ML VIAL XX ONE (14:24)
== END 2024-01-05 22:53 | disposition home or self-care (01) ==
LOC: ORSCMMR 08:30 → ORD 10:30 → ORSCMMR 10:30
PROVIDERS: Internal Medicine Gastroenterology
PROC: 0DBM8ZX Excision of Descending Colon, Via Natural or Artificial Opening Endoscopic, Diagnostic (ICD-10-PCS; principal; 2024-01-05 10:30)
PROC: 0DBH8ZX Excision of Cecum, Via Natural or Artificial Opening Endoscopic, Diagnostic (ICD-10-PCS; principal; 2024-01-05 10:30)
PROC: 0DBK8ZX Excision of Ascending Colon, Via Natural or Artificial Opening Endoscopic, Diagnostic (ICD-10-PCS; principal; 2024-01-05 10:30)
DX: Z12.11 Encounter for screening for malignant neoplasm of colon (principal); Z86.0100 Personal history of colon polyps, unspecified; D12.0 Benign neoplasm of cecum; D12.2 Benign neoplasm of ascending colon; D12.4 Benign neoplasm of descending colon; K57.30 Diverticulosis of large intestine without perforation or abscess without bleeding; K64.8 Other hemorrhoids; E66.01 Morbid (severe) obesity due to excess calories; Z68.42 Body mass index [BMI] 45.0-49.9, adult; I25.10 Atherosclerotic heart disease of native coronary artery without angina pectoris; I25.2 Old myocardial infarction; G47.33 Obstructive sleep apnea (adult) (pediatric); J44.9 Chronic obstructive pulmonary disease, unspecified; E11.9 Type 2 diabetes mellitus without complications; F32.A Depression, unspecified; Z79.899 Other long term (current) drug therapy; Z87.891 Personal history of nicotine dependence
CPT/HCPCS: 82947; 88305; J2704; J7040

== ENCOUNTER 2024-01-16 13:50 | Emergency (ER) | payer OTHER ==
[~2024-01-16] VITALS: Ht 152.4 cm; Wt 101.2 kg
[~2024-01-16 13:50] MED LIST changes: -Lactated Ringer's 1,000 ML IV SCH; -NS 500 ML IV SCH
[2024-01-16] MEDS ORDERED: OZEMPIC1 MG/0.72 SQ (14:10)
[2024-01-16] MEDS ORDERED: Ondansetron 4 MG SoluTab SL ONE (14:15)
[2024-01-16 15:44] LABS: BASOPHILS ABSOLUTE AUTO 0.06 K/mm3 (0.00-0.23); BASOPHILS PERCENT AUTO 1 % (0-2); EOSINOPHILS ABSOLUTE AUTO 0.15 K/mm3 (0.00-0.68); EOSINOPHILS PERCENT AUTO 2 % (0-6); Hematocrit 38.7 % (33.0-51.0); Hemoglobin 13.5 g/dL (11.5-16.0); IMMATURE GRAN ABSOLUTE AUTO 0.02 K/mm3 (0.00-0.10); IMMATURE GRAN PERCENT AUTO 0 % (0-1); LYMPHOCYTES ABSOLUTE AUTO 1.52 K/mm3 (0.84-5.20); LYMPHOCYTES PERCENT AUTO 19 % (21-46); MONOCYTES ABSOLUTE AUTO 0.54 K/mm3 (0.16-1.47); MONOCYTES PERCENT AUTO 7 % (4-13); Mean Corpuscular HGB 33.3 pg (26.0-34.0); Mean Corpuscular HGB Conc 34.9 g/dL (31.5-36.5); Mean Corpuscular Volume 95 fL (80-100); Mean Platelet Volume 10.8 fL (9.1-12.4); NEUTROPHILS PERCENT AUTO 71 % (41-73); Platelet Count 180 K/mm3 (150-400); RDW Coefficient Variation 14.2 % (11.7-14.2); RDW Standard Deviation 50.2 fL (35.1-46.3); Red Blood Cell Count 4.06 M/mm3 (3.80-5.20); White Blood Cell Count 7.99 K/mm3 (4.00-11.30)
[2024-01-16 16:11] LABS: Albumin, Blood 3.4 g/dL (3.4-5.0); Albumin/Globulin Ratio 0.7 (0.8-1.8); Bilirubin, Total 1.1 mg/dL (0.1-1.0); Bun/Creatinine Ratio 17.7 (12.0-20.0); Calcium, Blood 9.3 mg/dL (8.5-10.1); Creatinine, Blood 1.13 mg/dL (0.40-1.00); Magnesium, Blood 1.7 mg/dL (1.6-2.4); Potassium, Blood 3.3 mmol/L (3.5-5.5); Total Protein, Blood 8.4 g/dL (6.4-8.2)
[2024-01-16] MEDS ORDERED: Potassium Chloride 20 MEQ TabCR PO ONE (16:25)
[2024-01-16 17:00] VITALS: BP 120/64
== END 2024-01-16 17:39 | disposition home or self-care (01) ==
LOC: ER 13:50
PROVIDERS: Emergency Medicine
DX: R19.7 Diarrhea, unspecified (principal); E87.6 Hypokalemia; I10 Essential (primary) hypertension; G47.30 Sleep apnea, unspecified; J44.9 Chronic obstructive pulmonary disease, unspecified; E11.9 Type 2 diabetes mellitus without complications; Z87.891 Personal history of nicotine dependence
CPT/HCPCS: 80053; 83605; 83735; 85025; 99284; A9270

== ENCOUNTER 2024-07-07 16:18 | Emergency (ER) | payer OTHER ==
[~2024-07-07] VITALS: Ht 152.4 cm; Wt 99.8 kg
[~2024-07-07 16:18] MED LIST changes: +OZEMPIC1 MG/0.72 SQ
[2024-07-07 16:52] LABS: BASOPHILS ABSOLUTE AUTO 0.03 K/mm3 (0.00-0.23); BASOPHILS PERCENT AUTO 0 % (0-2); EOSINOPHILS ABSOLUTE AUTO 0.01 K/mm3 (0.00-0.68); EOSINOPHILS PERCENT AUTO 0 % (0-6); Hematocrit 35.1 % (33.0-51.0); Hemoglobin 12.1 g/dL (11.5-16.0); IMMATURE GRAN ABSOLUTE AUTO 0.12 K/mm3 (0.00-0.10); IMMATURE GRAN PERCENT AUTO 1 % (0-1); LYMPHOCYTES ABSOLUTE AUTO 0.42 K/mm3 (0.84-5.20); LYMPHOCYTES PERCENT AUTO 3 % (21-46); MONOCYTES ABSOLUTE AUTO 0.82 K/mm3 (0.16-1.47); MONOCYTES PERCENT AUTO 6 % (4-13); Mean Corpuscular HGB 31.8 pg (26.0-34.0); Mean Corpuscular HGB Conc 34.5 g/dL (31.5-36.5); Mean Corpuscular Volume 92 fL (80-100); Mean Platelet Volume 11.7 fL (9.1-12.4); NEUTROPHILS ABSOLUTE AUTO 12.48 K/mm3 (1.96-9.15); NEUTROPHILS PERCENT AUTO 90 % (41-73); Platelet Count 137 K/mm3 (150-400); RDW Coefficient Variation 14.2 % (11.7-14.2); RDW Standard Deviation 47.8 fL (35.1-46.3); White Blood Cell Count 13.88 K/mm3 (4.00-11.30)
[2024-07-07 17:15] LABS: Albumin, Blood 3.2 g/dL (3.4-5.0); Albumin/Globulin Ratio 0.7 (0.8-1.8); Bilirubin, Total 1.6 mg/dL (0.1-1.0); Bun/Creatinine Ratio 18.4 (12.0-20.0); Calcium, Blood 9.4 mg/dL (8.5-10.1); Creatinine, Blood 1.14 mg/dL (0.40-1.00); Globulin, Blood 4.5 g/dL (2.2-4.0); Potassium, Blood 3.3 mmol/L (3.5-5.5); Total Protein, Blood 7.7 g/dL (6.4-8.2)
[2024-07-07 20:00] VITALS: BP 112/59
[2024-07-07] MEDS ORDERED: LOPE2C PO (21:10)
[2024-07-07] MEDS ORDERED: ONDA4ODT MM (21:10)
== END 2024-07-07 22:21 | disposition home or self-care (01) ==
LOC: ER 16:18
PROVIDERS: Student in an Organized Health Care Education/Training Program
DX: R19.7 Diarrhea, unspecified (principal); R11.2 Nausea with vomiting, unspecified; I10 Essential (primary) hypertension; J44.9 Chronic obstructive pulmonary disease, unspecified; E11.9 Type 2 diabetes mellitus without complications; I25.10 Atherosclerotic heart disease of native coronary artery without angina pectoris; I25.2 Old myocardial infarction; Z79.899 Other long term (current) drug therapy; Z79.82 Long term (current) use of aspirin; Z87.891 Personal history of nicotine dependence; Z95.1 Presence of aortocoronary bypass graft
CPT/HCPCS: 74177; 80053; 83690; 85025; 93005; 93010; 99285-25; Q9967

== ENCOUNTER 2024-07-09 12:18 | Emergency (ER) | payer OTHER ==
[~2024-07-09] VITALS: Ht 152.4 cm; Wt 96.6 kg
[~2024-07-09 12:18] MED LIST changes: +LOPE2C PO; +ONDA4ODT MM
[2024-07-09] MEDS ORDERED: HYDR1TAB94 PO (12:35)
[2024-07-09] MEDS ORDERED: AMOX500 PO (12:35)
[2024-07-09 12:56] LABS: BASOPHILS ABSOLUTE AUTO 0.04 K/mm3 (0.00-0.23); BASOPHILS PERCENT AUTO 0 % (0-2); EOSINOPHILS ABSOLUTE AUTO 0.05 K/mm3 (0.00-0.68); EOSINOPHILS PERCENT AUTO 0 % (0-6); Hematocrit 32.1 % (33.0-51.0); Hemoglobin 11.3 g/dL (11.5-16.0); IMMATURE GRAN ABSOLUTE AUTO 0.08 K/mm3 (0.00-0.10); IMMATURE GRAN PERCENT AUTO 1 % (0-1); LYMPHOCYTES ABSOLUTE AUTO 0.96 K/mm3 (0.84-5.20); LYMPHOCYTES PERCENT AUTO 7 % (21-46); MONOCYTES ABSOLUTE AUTO 0.59 K/mm3 (0.16-1.47); MONOCYTES PERCENT AUTO 4 % (4-13); Mean Corpuscular HGB 32.9 pg (26.0-34.0); Mean Corpuscular HGB Conc 35.2 g/dL (31.5-36.5); Mean Corpuscular Volume 94 fL (80-100); Mean Platelet Volume 12.2 fL (9.1-12.4); NEUTROPHILS ABSOLUTE AUTO 12.77 K/mm3 (1.96-9.15); NEUTROPHILS PERCENT AUTO 88 % (41-73); Platelet Count 143 K/mm3 (150-400); RDW Coefficient Variation 14.4 % (11.7-14.2); RDW Standard Deviation 49.1 fL (35.1-46.3); Red Blood Cell Count 3.43 M/mm3 (3.80-5.20); White Blood Cell Count 14.49 K/mm3 (4.00-11.30)
[2024-07-09 14:07] LABS: Albumin, Blood 2.7 g/dL (3.4-5.0); Albumin/Globulin Ratio 0.6 (0.8-1.8); Bilirubin, Total 1.8 mg/dL (0.1-1.0); Bun/Creatinine Ratio 22.9 (12.0-20.0); Calcium, Blood 8.8 mg/dL (8.5-10.1); Creatinine, Blood 1.66 mg/dL (0.40-1.00); Globulin, Blood 4.7 g/dL (2.2-4.0); Potassium, Blood 3.9 mmol/L (3.5-5.5); Total Protein, Blood 7.4 g/dL (6.4-8.2)
[2024-07-09] MEDS ORDERED: Cephalexin Monohydrate 500 MG Cap PO ONE (16:50)
[2024-07-09] MEDS ORDERED: CEPH500 PO (16:57)
[2024-07-09] MEDS ORDERED: Elastic Bandage/Support 1 EA MISC TOP ONE (17:05)
[2024-07-09 18:00] VITALS: BP 107/50
== END 2024-07-09 18:34 | disposition home or self-care (01) ==
LOC: ER 12:18
PROVIDERS: Physician Assistant
DX: L03.115 Cellulitis of right lower limb (principal); Z79.891 Long term (current) use of opiate analgesic; Z79.890 Hormone replacement therapy; Z79.899 Other long term (current) drug therapy; Z79.82 Long term (current) use of aspirin; Z79.2 Long term (current) use of antibiotics; I10 Essential (primary) hypertension; G47.30 Sleep apnea, unspecified
CPT/HCPCS: 80053; 85025; 99283; A9270

== ENCOUNTER 2024-07-13 16:28 | Emergency (ER) | payer OTHER ==
[~2024-07-13] VITALS: Ht 152.4 cm; Wt 96.6 kg
[~2024-07-13 16:28] MED LIST changes: +AMOX500 PO
[2024-07-13 16:38] VITALS: BP 100/80
[2024-07-13 17:59] LABS: BASOPHILS ABSOLUTE AUTO 0.06 K/mm3 (0.00-0.23); BASOPHILS PERCENT AUTO 1 % (0-2); EOSINOPHILS ABSOLUTE AUTO 0.22 K/mm3 (0.00-0.68); EOSINOPHILS PERCENT AUTO 3 % (0-6); Hematocrit 34.4 % (33.0-51.0); Hemoglobin 11.9 g/dL (11.5-16.0); IMMATURE GRAN ABSOLUTE AUTO 0.05 K/mm3 (0.00-0.10); IMMATURE GRAN PERCENT AUTO 1 % (0-1); LYMPHOCYTES ABSOLUTE AUTO 1.48 K/mm3 (0.84-5.20); LYMPHOCYTES PERCENT AUTO 21 % (21-46); MONOCYTES PERCENT AUTO 7 % (4-13); Mean Corpuscular HGB 32.2 pg (26.0-34.0); Mean Corpuscular HGB Conc 34.6 g/dL (31.5-36.5); Mean Corpuscular Volume 93 fL (80-100); Mean Platelet Volume 11.3 fL (9.1-12.4); NEUTROPHILS ABSOLUTE AUTO 4.75 K/mm3 (1.96-9.15); NEUTROPHILS PERCENT AUTO 67 % (41-73); Platelet Count 247 K/mm3 (150-400); RDW Coefficient Variation 13.9 % (11.7-14.2); RDW Standard Deviation 47.8 fL (35.1-46.3); White Blood Cell Count 7.06 K/mm3 (4.00-11.30)
[2024-07-13 18:35] LABS: Albumin, Blood 2.9 g/dL (3.4-5.0); Albumin/Globulin Ratio 0.5 (0.8-1.8); Bilirubin, Total 0.9 mg/dL (0.1-1.0); Bun/Creatinine Ratio 17.2 (12.0-20.0); Calcium, Blood 9.9 mg/dL (8.5-10.1); Creatinine, Blood 1.34 mg/dL (0.40-1.00); Globulin, Blood 5.4 g/dL (2.2-4.0); Potassium, Blood 3.4 mmol/L (3.5-5.5); Total Protein, Blood 8.3 g/dL (6.4-8.2)
== END 2024-07-13 17:24 | disposition home or self-care (01) ==
LOC: ER 16:28
PROVIDERS: Student in an Organized Health Care Education/Training Program
DX: L03.115 Cellulitis of right lower limb (principal); I10 Essential (primary) hypertension; G47.30 Sleep apnea, unspecified; J44.9 Chronic obstructive pulmonary disease, unspecified; E11.9 Type 2 diabetes mellitus without complications; I25.10 Atherosclerotic heart disease of native coronary artery without angina pectoris; I25.2 Old myocardial infarction; Z86.718 Personal history of other venous thrombosis and embolism; Z87.891 Personal history of nicotine dependence; Z79.85 Long-term (current) use of injectable non-insulin antidiabetic drugs; Z79.82 Long term (current) use of aspirin; Z79.899 Other long term (current) drug therapy
CPT/HCPCS: 80053; 85025; 93971; 99284-25

== ENCOUNTER 2024-09-17 02:17 | Emergency (ER) | payer OTHER ==
[~2024-09-17] VITALS: Ht 152.4 cm; Wt 93.9 kg
[2024-09-17 02:56] LABS: BASOPHILS ABSOLUTE AUTO 0.03 K/mm3 (0.00-0.23); BASOPHILS PERCENT AUTO 1 % (0-2); EOSINOPHILS ABSOLUTE AUTO 0.23 K/mm3 (0.00-0.68); EOSINOPHILS PERCENT AUTO 4 % (0-6); Hematocrit 34.7 % (33.0-51.0); Hemoglobin 12.1 g/dL (11.5-16.0); IMMATURE GRAN ABSOLUTE AUTO 0.02 K/mm3 (0.00-0.10); IMMATURE GRAN PERCENT AUTO 0 % (0-1); LYMPHOCYTES ABSOLUTE AUTO 1.10 K/mm3 (0.84-5.20); LYMPHOCYTES PERCENT AUTO 17 % (21-46); MONOCYTES ABSOLUTE AUTO 0.46 K/mm3 (0.16-1.47); MONOCYTES PERCENT AUTO 7 % (4-13); Mean Corpuscular HGB Conc 34.9 g/dL (31.5-36.5); Mean Corpuscular Volume 92 fL (80-100); NEUTROPHILS ABSOLUTE AUTO 4.75 K/mm3 (1.96-9.15); NEUTROPHILS PERCENT AUTO 72 % (41-73); NRBC ABSOLUTE 0.00 K/mm3 (0.00-0.02); NRBC Auto 0.0 /100 WBC (0.0-0.2); Platelet Count 128 K/mm3 (150-400); RDW Coefficient Variation 13.8 % (11.7-14.2); RDW Standard Deviation 46.8 fL (35.1-46.3)
[2024-09-17 03:12] LABS: Alanine Aminotransfer (ALT/SGP 38.0 U/L (12-78); Albumin, Blood 3.1 g/dL (3.4-5.0); Albumin/Globulin Ratio 0.7 (0.8-1.8); Anion Gap 8.0 mmol/L (3-11); Aspartate Aminotrans (AST/SGOT 44.0 U/L (12-37); Bilirubin, Total 1.1 mg/dL (0.1-1.0); Blood Urea Nitrogen 24.0 mg/dL (8-24); CO2, Blood 32.0 mmol/L (21-32); Calcium, Blood 8.3 mg/dL (8.5-10.1); Chloride, Blood 102.0 mmol/L (98-108); Creatinine, Blood 1.15 mg/dL (0.40-1.00); Globulin, Blood 4.5 g/dL (2.2-4.0); Glucose, Blood 95.0 mg/dL (70-99); Potassium, Blood 3.5 mmol/L (3.5-5.5); Sodium, Blood 138.0 mmol/L (136-145); Total Protein, Blood 7.6 g/dL (6.4-8.2)
[2024-09-17] MEDS ORDERED: NS 1,000 ML IV SCH (08:15)
[2024-09-17 09:44] LABS: Source, Urine Clean Catch
[2024-09-17 09:52] LABS: Bilirubin, Urine Neg (Neg); Color, Urine Yellow (P-Yellow); Glucose Qualitative, Urine Neg (Neg); Ketones, Urine Neg (Neg); Leukocyte Esterase, Urine 1+ (Neg); Protein, Urine 1+ (Neg); Specific Gravity, Urine 1.015 (1.003-1.022); Urobilinogen, Urine 1+ (Normal)
[2024-09-17 10:00] VITALS: BP 129/70
[2024-09-17 10:01] LABS: Red Blood Cells, Urine 0-2 /hpf (0-2)
[2024-09-17] MEDS ORDERED: Percocet 5-3251 EACH PO (10:03)
[2024-09-17] MEDS ORDERED: AMOCLA875 PO (10:03)
== END 2024-09-17 10:16 | disposition home or self-care (01) ==
LOC: ER 02:17
PROVIDERS: Student in an Organized Health Care Education/Training Program
DX: K57.32 Diverticulitis of large intestine without perforation or abscess without bleeding (principal); I10 Essential (primary) hypertension; G47.33 Obstructive sleep apnea (adult) (pediatric); J44.9 Chronic obstructive pulmonary disease, unspecified; Z87.891 Personal history of nicotine dependence; Z79.899 Other long term (current) drug therapy; Z79.2 Long term (current) use of antibiotics
CPT/HCPCS: 74177; 80053; 81001; 83690; 85025; 87077; 87086; 87186; 93005; 93010; 99284-25; A9270; J7030; Q9967

== ENCOUNTER → 2024-09-24 | Outpatient (CLI) | payer OTHER ==
[~2024-09-24] MED LIST changes: +AMOCLA875 PO
== END ==
LOC: LAB 18:15 → LAB SHORT 18:15
DX: J34.89 Other specified disorders of nose and nasal sinuses (principal)
CPT/HCPCS: 87070